=== PATIENT | male | born 1980 | race African-American/Black ===

== ENCOUNTER 2022-11-03 00:22 | Emergency (ER) | payer MEDICAID ==
[~2022-11-03] VITALS: Ht 177.8 cm; Wt 95.0 kg
[2022-11-03] MEDS ORDERED: ALBUTEROL (0.083%) 2.5MG/3ML NEB HHN ONE (01:45)
[2022-11-03] MEDS ORDERED: PREDNISONE 20MG TABLET PO ONE (01:45)
[2022-11-03 02:40] VITALS: BP 126/90
[2022-11-03] MEDS ORDERED: P50 MT (03:39)
[2022-11-03] MEDS ORDERED: ALBU18HF2 IH (03:39)
[2022-11-03] MEDS ORDERED: PREDNISONE 20MG TABLET PO NR (04:00)
== END 2022-11-03 04:27 | disposition home or self-care (01) ==
LOC: ER 00:22
DX: J45.901 Unspecified asthma with (acute) exacerbation (principal)
CPT/HCPCS: 71045; 94640; 99283; J7512; Z7610